=== PATIENT | female | born 1995 | race American Indian/Alaskan Native ===

== ENCOUNTER 2019-01-08 12:04 | Emergency (ER) | payer SELFPAY ==
--- NOTE | 2019-01-08 12:28 | Emergency Department Report ---
Blank Doc - Documentation Documentation: 23-year-old female that presents with hematuria, and pelvic pain with frequent urination. This initial assessment/diagnostic orders/clinical plan/treatment(s) is/are subject to change based on patient's health status, clinical progression and re- assessment by fellow clinical providers in the ED. Further treatment and workup at subsequent clinical providers discretion. Patient/guardians urged not to elope from the ED as their condition may be serious if not clinically assessed and managed. Initial orders include: 1- Patient sent to [facility] for further evaluation and treatment 2- UA
[2019-01-08 13:08] LABS: Bacteria,Urine 1+ /HPF (Negative); Bilirubin,Urine NEG (Negative); Blood,Urine LG (Negative); Color,Urine Straw (Yellow); HCG Qualitative,Urine Negative (Negative); Protein,Urine <15 mg/dL mg/dL (Negative); Urobilinogen,Urine < 2.0 mg/dL (<2.0); WBC,Urine > 182.0 /HPF (0.0-6.0)
--- NOTE | 2019-01-08 15:03 | Emergency Department Report ---
ED Female HPI - General Chief complaint: Abdominal Pain Stated complaint: BLOOD URINE/ABD PAIN Time Seen by Provider: 01/08/19 12:26 Source: patient Mode of arrival: Ambulatory Limitations: No Limitations - History of Present Illness MD Complaint: dysuria -: days(s) (4) Severity: moderate Associated Symptoms: dysuria - Related Data Allergies Allergy/AdvReac Type Severity Reaction Status Date / Time No Known Allergies Allergy Verified 01/08/19 12:10 ED Review of Systems ROS: Stated complaint: BLOOD URINE/ABD PAIN Other details as noted in HPI Comment: All other systems reviewed and negative Constitutional: denies: chills, fever Cardiovascular: denies: chest pain, palpitations Gastrointestinal: abdominal pain, nausea. denies: vomiting, diarrhea, constipation, hematemesis, melena, hematochezia Genitourinary: urgency, dysuria, frequency. denies: hematuria, discharge, abnormal menses, dyspareunia Neurological: denies: headache, weakness, numbness, paresthesias, confusion ED Past Medical Hx - Past Medical History Previous Medical History?: No - Surgical History Past Surgical History?: No - Social History Smoking Status: Current Some Day Smoker Substance Use Type: Marijuana ED Physical Exam - General Limitations: No Limitations General appearance: alert, in no apparent distress - Head Head exam: Present: atraumatic, normocephalic, normal inspection - Eye Eye exam: Present: normal appearance - Neck Neck exam: Present: normal inspection - Respiratory Respiratory exam: Present: normal lung sounds bilaterally - Cardiovascular Cardiovascular Exam: Present: regular rate, normal heart sounds - GI/Abdominal GI/Abdominal exam: Present: soft, normal bowel sounds. Absent: distended, tenderness, guarding, rebound, rigid, diminished bowel sounds, organomegaly, mass, bruit, pulsatile mass, hernia - Extremities Exam Extremities exam: Present: normal inspection, full ROM, normal capillary refill. Absent: tenderness, pedal edema, calf tenderness - Back Exam Back exam: Present: normal inspection, full ROM. Absent: CVA tenderness (R), CVA tenderness (L), muscle spasm, paraspinal tenderness, vertebral tenderness - Neurological Exam Neurological exam: Present: alert, oriented X3, CN II-XII intact, normal gait, r eflexes normal - Psychiatric Psychiatric exam: Present: normal mood - Skin Skin exam: Present: warm, intact, normal color ED Course Vital Signs 01/08/19 12:26 Temperature 97.3 F L Pulse Rate 109 H Respiratory 16 Rate Blood Pressure 113/51 O2 Sat by Pulse 95 Oximetry ED Medical Decision Making - Medical Decision Making Urinalysis showed more than 180 white blood cells. Critical care attestation.: If time is entered above; I have spent that time in minutes in the direct care of this critically ill patient, excluding procedure time. ED Disposition Clinical Impression: UTI (urinary tract infection) Disposition: - TO HOME OR SELFCARE Is pt being admited?: No Condition: Stable Instructions: Abdominal Pain (ED), Urinary Tract Infection in Women (ED) Referrals: [facility] [Provider Group] - 3-5 Days
[2019-01-08 15:32] VITALS: BP 103/52
== END 2019-01-08 15:23 | disposition home or self-care (01) ==
LOC: ED 12:04
DX: N39.0 Urinary tract infection, site not specified (principal); F17.200 Nicotine dependence, unspecified, uncomplicated; F12.10 Cannabis abuse, uncomplicated
CPT/HCPCS: 81001; 81025

== ENCOUNTER 2019-04-24 16:29 | Emergency (ER) | payer SELFPAY ==
[2019-04-24 16:33] VITALS: BP 104/62
--- NOTE | 2019-04-24 17:19 | Emergency Department Report ---
Chief Complaint: Urogenital-Female Stated Complaint: ABD PAIN/VAGINAL DISCHARGE Time Seen by Provider: 04/24/19 17:15 - HPI History of Present Illness: This is a 24 y.o. F. that presents to the ER with abdominal pain and vaginal discharge for 2 days. LMP 04/17/2018 Reports vaginal discharges if foul smelling, large amount, and green. Admits a risk of STD. Denies fever, chills, urinary frequency, urgency, dysuria, nausea, vomiting, or back pain. - Exam Vital Signs: Vital Signs 04/24/19 16:32 Temperature 99.0 F Pulse Rate 70 Respiratory 18 Rate Blood Pressure 104/62 O2 Sat by Pulse 99 Oximetry MSE screening note: Focused history and physical exam performed. Due to findings the following was ordered: ED Disposition for MSE Condition: Stable
--- NOTE | 2019-04-24 17:47 | Emergency Department Report ---
ED Female HPI - General Chief complaint: Urogenital-Female Stated complaint: ABD PAIN/VAGINAL DISCHARGE Time Seen by Provider: 04/24/19 17:15 Source: patient Mode of arrival: Ambulatory Limitations: No Limitations - History of Present Illness Initial comments: Patient is a 24-year-old female presents emergency room with complaints of green vaginal discharge that began yesterday. She states that she also has lower abdominal discomfort. She states that she did have some dysuria yesterday but none today. She states that she is sexually active and does not use protection. She denies any vaginal lesions or blisters, nausea, vomiting, diarrhea, fever. She states that she last saw an INFECTION CONTROL NURSE 4 months ago. She denies any past medical history allergies to medications. She states her last menstrual cycle was 04/17/2019. - Related Data Previous Rx's Medication Instructions Recorded Last Taken Type Ondansetron [Zofran Odt] 4 mg PO Q8HR PRN #14 tab.rapdis 01/08/19 Unknown Rx Sulfamethoxazole/Trimethoprim 1 each PO BID #14 tablet 01/08/19 Unknown Rx [Bactrim DS TAB] Allergies Allergy/AdvReac Type Severity Reaction Status Date / Time No Known Allergies Allergy Verified 04/24/19 17:15 ED Review of Systems ROS: Stated complaint: ABD PAIN/VAGINAL DISCHARGE Other details as noted in HPI Comment: All other systems reviewed and negative ED Past Medical Hx - Past Medical History Previous Medical History?: No - Surgical History Past Surgical History?: No - Social History Smoking Status: Never Smoker Substance Use Type: Marijuana - Medications Home Medications: Home Medications Medication Instructions Recorded Confirmed Last Taken Type Ondansetron [Zofran Odt] 4 mg PO Q8HR PRN #14 tab.rapdis 01/08/19 Unknown Rx Sulfamethoxazole/Trimethoprim 1 each PO BID #14 tablet 01/08/19 Unknown Rx [Bactrim DS TAB] ED Physical Exam - General Limitations: No Limitations General appearance: alert, in no apparent distress - Head Head exam: Present: atraumatic, normocephalic - Eye Eye exam: Present: normal appearance - ENT ENT exam: Present: mucous membranes moist - Respiratory Respiratory exam: Present: normal lung sounds bilaterally. Absent: respiratory distress, wheezes, rales, rhonchi, stridor, chest wall tenderness, accessory muscle use, decreased breath sounds, prolonged expiratory - Cardiovascular Cardiovascular Exam: Present: regular rate, normal rhythm, normal heart sounds. Absent: systolic murmur, diastolic murmur, rubs, gallop - GI/Abdominal GI/Abdominal exam: Present: soft, normal bowel sounds. Absent: distended, guarding, rebound, rigid - External exam: Present: normal external exam. Absent: erythema, swelling, lesions, lacerations, ecchymosis, bleeding Speculum exam: Present: vaginal discharge (yellow/green), cervical discharge (yellow/green), other (diamond broker: jesus graham RN). Absent: erythema, vaginal bleeding, foreign body, tissue, laceration Bi-manual exam: Present: normal bi-manual exam. Absent: cervical motion tendernes, adnexal tenderness, adnexal mass - Neurological Exam Neurological exam: Present: alert, oriented X3 - Psychiatric Psychiatric exam: Present: normal affect, normal mood - Skin Skin exam: Present: warm, dry, intact ED Course Vital Signs 04/24/19 16:32 Temperature 99.0 F Pulse Rate 70 Respiratory 18 Rate Blood Pressure 104/62 O2 Sat by Pulse 99 Oximetry ED Medical Decision Making - Lab Data Lab Results 04/24/19 Range/Units Unknown Urine Color Yellow (Yellow) Urine Turbidity Slightly-cloudy (Clear) Urine pH 5.0 (5.0-7.0) Ur Specific [place] 1.014 (1.003-1.030) Urine Protein <15 mg/dl (Negative) mg/dL Urine Glucose (UA) Neg (Negative) mg/dL Urine Ketones Neg (Negative) mg/dL Urine Blood Neg (Negative) Urine Nitrite Neg (Negative) Ur Reducing Substances Not Reportable Urine Bilirubin Neg (Negative) Urine Ictotest Not Reportable Urine Urobilinogen < 2.0 (<2.0) mg/dL Ur Leukocyte Esterase Sm (Negative) Urine WBC (Auto) 5.0 (0.0-6.0) /HPF Urine RBC (Auto) 5.0 (0.0-6.0) /HPF U Epithel Cells (Auto) 5.0 (0-13.0) /HPF Urine Bacteria (Auto) 1+ (Negative) /HPF Urine Mucus Few /HPF Urine HCG, Qual Negative (Negative) - Medical Decision Making Patient is a 24-year-old female presents emergency room with complaints of green vaginal discharge that began yesterday. She states that she also has lower abdominal discomfort. She states that she did have some dysuria yesterday but none today. She states that she is sexually active and does not use protection. She denies any vaginal lesions or blisters, nausea, vomiting, diarrhea, fever. She states that she last saw an INFECTION CONTROL NURSE 4 months ago. She denies any past medical history allergies to medications. She states her last menstrual cycle was 04/17/2019. Vitals are normal. No abdominal tenderness to palpation, yellow/green vaginal and cervical discharge present, no CMT, no adnexal tenderness or masses, diamond broker Jesus Graham, EMT. wet prep is negative. G/C swab sent. Patient prophylactically treated for G/C with azithromycin and ceftriaxone. 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 Please abstain from sexual intercourse for the next 10 days. Please have any partner tested and treated as well. Please go to the health department for a full STD panel. Return to the emergency room for any new or worsening symptoms. - Differential Diagnosis STD, UTI, BV, yeast, vaginitis, PID, TOA Critical care attestation.: If time is entered above; I have spent that time in minutes in the direct care of this critically ill patient, excluding procedure time. 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 Please abstain from sexual intercourse for the next 10 days. Please have any partner tested and treated as well. Please go to the health department for a full STD panel. Return to the emergency room for any new or worsening symptoms. Referrals: [facility] [Outside] - 3-5 Days [facility] [Outside] - 3-5 Days [facility] [Outside] - 3-5 Days [facility] [Provider Group] - 3-5 Days Time of Disposition: 18:14 Print Language: TELUGU
[2019-04-24 17:58] LABS: HCG Qualitative,Urine Negative (Negative)
[2019-04-24 18:02] LABS: Bacteria,Urine 1+ /HPF (Negative); Bilirubin,Urine NEG (Negative); Blood,Urine NEG (Negative); Color,Urine Yellow (Yellow); Mucus,Urine FEW /HPF; Protein,Urine <15 mg/dL mg/dL (Negative); Urobilinogen,Urine < 2.0 mg/dL (<2.0)
[2019-04-24] MEDS ORDERED: LIDOCAINE-MPF (1%) 10 MG/1 ML VIAL 5 ML INFILTRATI ONE (18:10)
[2019-04-24] MEDS ORDERED: AZITHROMYCIN 1 GM ORAL PWDR PACKET PO ONE (18:10)
== END 2019-04-24 18:47 | disposition home or self-care (01) ==
LOC: ED 16:29
DX: N89.8 Other specified noninflammatory disorders of vagina (principal); A63.8 Other specified predominantly sexually transmitted diseases; F12.10 Cannabis abuse, uncomplicated; Z79.899 Other long term (current) drug therapy
CPT/HCPCS: 81001; 81025; 87210; 87591; 96372; 99284; J0696